=== PATIENT | female | born 1950 ===

== ENCOUNTER 2018-04-03 06:15 | Day surgery (SDC) | payer OTHER ==
[~2018-04-03 06:15] MED LIST: CLONAZEPAM0.5 MG PO; COZAAR50 MG PO; GABAPENTIN100 MG PO; INTESTINEX680 MG PO; METFORMIN HCL500 MG PO; OMEPRAZOLE20 MG PO; PERCOCET 5/3251 TAB PO; PROTONIX20 MG PO; PROZAC20 MG PO; ZANTAC300 MG PO
== END 2018-04-03 11:20 | disposition home or self-care (01) ==
LOC: AMB-ENDOS 06:15
DX: K57.32 Diverticulitis of large intestine without perforation or abscess without bleeding (principal)